=== PATIENT | male | born 1965 | race Caucasian/White ===

== ENCOUNTER 2025-08-01 12:28 | Emergency (ER) | payer MEDICARE, MEDICAID ==
[2025-08-01] MEDS: Povidone-Iodine 10% Soln 118.25 ML Bottle TOP ONE (14:10)
[2025-08-01] MEDS: Bacitracin Oint 1 GM U/D Packet TOP ONE (14:10)
[2025-08-01] MEDS: Diphtheria,Pertussis(Acell),Tetanus Vaccine 0.5 ML Syringe IM ONE (14:11)
== END 2025-08-01 15:23 | disposition home or self-care (01) ==
LOC: JP.ED 12:28
DX: S62.665B Nondisplaced fracture of distal phalanx of left ring finger, initial encounter for open fracture (principal); Z79.899 Other long term (current) drug therapy; Z23 Encounter for immunization; W23.1XXA Caught, crushed, jammed, or pinched between stationary objects, initial encounter; Y93.89 Activity, other specified
CPT/HCPCS: 12001; 73140; 90471; 90715; 96372; 99283; J0696; J2003